=== PATIENT | male | born 1995 | race Caucasian/White ===

== ENCOUNTER 2018-03-16 12:57 | Emergency (ER) | payer SELFPAY ==
[~2018-03-16] VITALS: Ht 177.8 cm; Wt 69.9 kg
[2018-03-16 13:03] VITALS: BP 138/77; Ht 177.8 cm; Wt 69.9 kg
== END 2018-03-16 13:59 | disposition home or self-care (01) ==
LOC: ED 12:57
DX: N34.2 Other urethritis (principal); H00.14 Chalazion left upper eyelid; F17.210 Nicotine dependence, cigarettes, uncomplicated
CPT/HCPCS: 87491; 87591; 99406; J0696

== ENCOUNTER 2018-05-21 19:23 | Emergency (ER) | payer BC ==
[~2018-05-21] VITALS: Ht 177.8 cm; Wt 72.6 kg
[2018-05-21 19:54] VITALS: BP 131/65; Ht 177.8 cm; Wt 72.6 kg
== END 2018-05-21 20:52 | disposition home or self-care (01) ==
LOC: ED 19:23
DX: H00.14 Chalazion left upper eyelid (principal)